=== PATIENT | female | born 1950 | race Caucasian/White ===

== ENCOUNTER 2023-09-03 16:26 | Emergency (ER) | payer MEDICARE ==
[2023-09-03] VITALS (10 sets, daily range): BP systolic 119–159; BP diastolic 56–88
[~2023-09-03] VITALS: Ht 175.3 cm; Wt 67.4 kg
[2023-09-03 16:56] LABS: BASO% 0.2 % (0-3); HEMATOCRIT 42.4 % (37.0-47.0); HEMOGLOBIN 13.6 g/dl (12.0-16.0); IMMATURE GRANULOCYTES 0.2 % (0.0-5.0); LYMPH% 4.4 % (15-41); MEAN CELL VOLUME 97.7 fL CALC (80.0-100.0); MEAN CORPUSCULAR HGB 31.3 pG CALC (26.0-32.0); MEAN CORPUSCULAR HGB CONC 32.1 g/dL CAL (32.0-36.0); NEUT# 11.21 thou/uL (2.00-7.15); NEUT% 93.2 % (42-76); RED BLOOD COUNT 4.34 mill/uL (4.20-5.60); RED CELL DISTRI WIDTH 11.8 % (11.5-15.5)
[2023-09-03] MEDS ORDERED: ONDANSETRON HCl 4 MG/2 ML SDV IV ONE (17:00)
[2023-09-03 17:17] LABS: ALBUMIN 4.7 g/dL (3.2-5.0); ALKALINE PHOSPHATASE 72 u/l (38-126); ANION GAP 13 (6-22 (CALC)); BILIRUBIN, TOTAL 0.7 mg/dL (0.02-1.3); BUN 14 mg/dL (8-23); BUN/CREATININE RATIO 20 (12-20 (CALC)); CALCULATED LDLCHOLESTEROL 56 mg/dL (62-129 (CALC)); CARBON DIOXIDE 22 mmol/l (22-30); CHLORIDE 105 mmol/l (95-108); CHOLESTEROL HDL RATIO 1.6 (<4.4 (CALC)); CREATININE 0.7 mg/dL (0.5-1.0); GFR FOR AFR.AMER. > 60 ML/MIN (>=60 (CALC)); GFR OTHER RACES > 60 ML/MIN (>=60 (CALC)); HDL CHOLESTEROL 107 mg/dL (39.0-59.0); POTASSIUM 4.1 mmol/l (3.5-5.1); SGOT/AST 39 u/l (9-36); SODIUM 136 mmol/l (137-146); TOTAL CHOLESTEROL 173 mg/dl (0-199); TOTAL PROTEIN 7.9 g/dL (6.3-8.2); TOTAL TRIGLYCERIDES 48 mg/dl (0-149); VLDL CHOLESTROL 10 mg/dl (0-48 (CALC))
[2023-09-03 17:23] LABS: PROTHROMBIN TIME 9.9 SECONDS (9.0-12.5)
[2023-09-03] MEDS ORDERED: SODIUM CHLORIDE 0.9% 100 ML IV ONE (17:25)
== END 2023-09-03 18:45 ==
LOC: ED 16:26
PROVIDERS: Family Medicine
DX: I61.1 Nontraumatic intracerebral hemorrhage in hemisphere, cortical (principal); R29.810 Facial weakness; R29.704 NIHSS score 4; I10 Essential (primary) hypertension; E78.5 Hyperlipidemia, unspecified; E85.4 Organ-limited amyloidosis; I68.0 Cerebral amyloid angiopathy; Z86.73 Personal history of transient ischemic attack (TIA), and cerebral infarction without residual deficits; Z20.822 Contact with and (suspected) exposure to COVID-19
CPT/HCPCS: J1953